=== PATIENT | female | born 1990 | race Caucasian/White ===

== ENCOUNTER 2021-07-16 14:44 | Inpatient (IN) | payer OTHER ==
[2021-07-16] MEDS ORDERED: MENTHOL/PHENOL 1 EACH UD MM PRN (15:12)
[2021-07-16] MEDS ORDERED: cloNIDine HCL 0.1 MG TABLET PO PRN (15:12)
[2021-07-16] MEDS ORDERED: BISMUTH SUBSALICYLATE 524 MG/30 ML PO PRN (15:12)
[2021-07-16] MEDS ORDERED: MAG HYDROX/AL HYDROX/SIMETH 30 ML UNIT-DOSE CUP PO PRN (15:12)
[2021-07-16] MEDS ORDERED: ACETAMINOPHEN 325 MG TABLET (FP) PO PRN ×2 (15:12)
[2021-07-16] MEDS ORDERED: MAGNESIUM CITRATE 300 ML BOTTLE PO PRN (15:12)
[2021-07-16] MEDS ORDERED: NICOTINE 10 MG CARTRIDGE (INHALER) IH PRN (15:12)
[2021-07-16] MEDS ORDERED: MAGNESIUM HYDROX 2400MG/30ML ORAL SUSPENSION 30 ML CUP PO PRN (15:12)
[2021-07-16] MEDS ORDERED: methaDONE HCL 10 MG TABLET (FOR DETOX USE ONLY) PO ONE (15:12)
[2021-07-16] MEDS ORDERED: ONDANSETRON *ODT* 4 MG TABLET SL PRN (15:12)
[2021-07-16] MEDS ORDERED: IBUPROFEN 400 MG TABLET (FP) PO PRN (15:12)
[2021-07-16 15:56] VITALS: BMI 25.3
[2021-07-16] MEDS: hydrOXYzine PAMOATE 25 MG CAPSULE (FP) PO SCH ×2 (17:43→22:11)
[2021-07-16] MEDS: NICOTINE 7 MG/24 HOURS TOPICAL PATCH TD SCH (17:48)
[2021-07-16] MEDS: PRENATAL VITAMINS W/ FOLIC ACID TABLET (FP) PO SCH (17:48)
[2021-07-16] MEDS: THIAMINE HCL 100 MG TABLET (FP) PO SCH (22:11)
[2021-07-16] MEDS: MELATONIN 5 MG TABLETS PO SCH (22:11)
[2021-07-17] MEDS: hydrOXYzine PAMOATE 25 MG CAPSULE (FP) PO SCH ×5 (06:25→23:07)
[2021-07-17] MEDS ORDERED: diazePAM 5 MG TABLET PO PRN (09:06)
[2021-07-17] MEDS ORDERED: methaDONE HCL 10 MG TABLET (FOR DETOX USE ONLY) ONE (09:48)
[2021-07-17 10:28] LABS: HEMATOCRIT 42.5 % (32.4-45.2); HEMOGLOBIN 14.4 GM/dL (10.7-15.3); MCH 28.8 pg (25.7-33.7); MCHC 33.8 g/dl (32.0-36.0); MEAN CELL VOLUME 85.5 fl (80-96); MEAN PLT VOLUME 8.2 fl (7.5-11.1); PLATELET COUNT 346 10^3/uL (134-434); RBC 4.98 M/mm3 (3.60-5.2); RDW 15.4 % (11.6-15.6); WHITE BLOOD COUNT 8.2 K/mm3 (4.0-10.0)
[2021-07-17 10:40] LABS: BLOOD UREA NITROGEN 10.4 mg/dL (7-18)
[2021-07-17 10:42] LABS: CALCIUM 8.7 mg/dL (8.5-10.1)
[2021-07-17 10:43] LABS: CREATININE 0.7 mg/dL (0.55-1.3)
[2021-07-17 10:45] LABS: BILIRUBIN,TOTAL 0.3 mg/dL (0.2-1)
[2021-07-17] MEDS: PRENATAL VITAMINS W/ FOLIC ACID TABLET (FP) PO SCH (10:55)
[2021-07-17] MEDS: METHOCARBAMOL 500 MG TABLET PO PRN (10:56)
[2021-07-17] MEDS: NICOTINE 7 MG/24 HOURS TOPICAL PATCH TD SCH (10:56)
[2021-07-17] MEDS: diazePAM 5 MG TABLET PO SCH ×3 (10:57→23:07)
[2021-07-17] MEDS: THIAMINE HCL 100 MG TABLET (FP) PO SCH (23:07)
[2021-07-17] MEDS: MELATONIN 5 MG TABLETS PO SCH (23:09)
[2021-07-18] MEDS: hydrOXYzine PAMOATE 25 MG CAPSULE (FP) PO SCH ×3 (06:57→15:12)
[2021-07-18] MEDS: diazePAM 5 MG TABLET PO SCH ×4 (06:57→22:24)
[2021-07-18] MEDS: PRENATAL VITAMINS W/ FOLIC ACID TABLET (FP) PO SCH (10:00)
[2021-07-18] MEDS ORDERED: methaDONE HCL 10 MG TABLET (FOR DETOX USE ONLY) PO ONE (10:00)
[2021-07-18] MEDS: NICOTINE 7 MG/24 HOURS TOPICAL PATCH TD SCH (10:00)
[2021-07-18] MEDS: METHOCARBAMOL 500 MG TABLET PO PRN (10:00)
[2021-07-18] MEDS ORDERED: hydrOXYzine PAMOATE 25 MG CAPSULE (FP) PO PRN (15:13)
[2021-07-18] MEDS: THIAMINE HCL 100 MG TABLET (FP) PO SCH (22:24)
[2021-07-18] MEDS: MELATONIN 5 MG TABLETS PO SCH (22:24)
[2021-07-19] MEDS ORDERED: diazePAM 5 MG TABLET PO PRN (00:01)
[2021-07-19] MEDS ORDERED: diazePAM 5 MG TABLET PO SCH (06:00)
[2021-07-19 09:52] VITALS: BP 119/58; PULSE 77; TEMP 97.4
[2021-07-20] MEDS ORDERED: diazePAM 5 MG TABLET PO PRN (00:01)
[2021-07-20] MEDS ORDERED: diazePAM 5 MG TABLET PO SCH (06:00)
[2021-07-20] MEDS ORDERED: methaDONE HCL 10 MG TABLET (FOR DETOX USE ONLY) PO ONE (10:00)
[2021-07-21] MEDS ORDERED: diazePAM 5 MG TABLET PO ONE (06:00)
== END 2021-07-19 11:43 | disposition home or self-care (01) | DRG 773 ==
LOC: YASAS 14:44 → Y6N 16:22
PROVIDERS: ADMIT Allergy & Immunology; ATTEND Allergy & Immunology
PROC: HZ2ZZZZ Detoxification Services for Substance Abuse Treatment (ICD-10-PCS; principal; 2021-07-16)
DX: F11.23 Opioid dependence with withdrawal (principal); F13.232 Sedative, hypnotic or anxiolytic dependence with withdrawal with perceptual disturbance; F14.20 Cocaine dependence, uncomplicated; F12.20 Cannabis dependence, uncomplicated; F17.210 Nicotine dependence, cigarettes, uncomplicated
CPT/HCPCS: 36415; 80053; 81025; 85027; 86780; C9803; U0003; U0005

== ENCOUNTER 2022-03-20 14:35 | Inpatient (IN) | payer OTHER ==
[2022-03-20 15:21] VITALS: BMI 23.6
[2022-03-20] MEDS ORDERED: NICOTINE 10 MG CARTRIDGE (INHALER) IH PRN (16:10)
[2022-03-20] MEDS ORDERED: MAGNESIUM CITRATE 300 ML BOTTLE PO PRN (16:10)
[2022-03-20] MEDS ORDERED: IBUPROFEN 400 MG TABLET (FP) PO PRN (16:10)
[2022-03-20] MEDS ORDERED: LOPERAMIDE HCL 2 MG CAPSULE PO PRN (16:10)
[2022-03-20] MEDS ORDERED: MAGNESIUM HYDROX 2400MG/30ML ORAL SUSPENSION 30 ML CUP PO PRN (16:10)
[2022-03-20] MEDS: hydrOXYzine PAMOATE 25 MG CAPSULE (FP) PO SCH (18:26)
[2022-03-20] MEDS: ACETAMINOPHEN 325 MG TABLET (FP) PO PRN (18:26)
[2022-03-20] MEDS: CLINDAMYCIN HCL 150 MG CAPSULE (FP) PO SCH (18:28)
[2022-03-20] MEDS ORDERED: MELATONIN 5 MG TABLETS PO SCH (22:00)
[2022-03-21] MEDS: THIAMINE HCL 100 MG TABLET (FP) PO SCH ×2 (00:26→21:14)
[2022-03-21] MEDS: CLINDAMYCIN HCL 150 MG CAPSULE (FP) PO SCH ×4 (00:26→18:29)
[2022-03-21] MEDS: hydrOXYzine PAMOATE 25 MG CAPSULE (FP) PO SCH ×3 (00:27→10:25)
[2022-03-21] MEDS: BACITRACIN 0.9 GM PACKET TP SCH ×3 (00:29→21:13)
[2022-03-21] MEDS: ACETAMINOPHEN 325 MG TABLET (FP) PO PRN ×2 (06:53→11:40)
[2022-03-21] MEDS: PRENATAL VITAMINS W/ FOLIC ACID TABLET (FP) PO SCH (10:25)
[2022-03-21] MEDS ORDERED: hydrOXYzine PAMOATE 50 MG CAPSULE (FP) PO SCH (12:00)
[2022-03-21] MEDS: busPIRone HCL 10 MG TABLET (FP) PO SCH ×2 (13:33→21:13)
[2022-03-21] MEDS: guaiFENesin 200 MG/10 ML 10 ML UNIT-DOSE CUPS PO PRN (13:57)
[2022-03-21 15:33] LABS: HEMATOCRIT 42.1 % (32.4-45.2); HEMOGLOBIN 13.2 GM/dL (10.7-15.3); MCH 23.3 pg (25.7-33.7); MCHC 31.4 g/dl (32.0-36.0); MEAN CELL VOLUME 74.2 fl (80-96); MEAN PLT VOLUME 8.7 fl (7.5-11.1); PLATELET COUNT 341 10^3/uL (134-434); RBC 5.67 M/mm3 (3.60-5.2); RDW 22.8 % (11.6-15.6); WHITE BLOOD COUNT 6.2 K/mm3 (4.0-10.0)
[2022-03-21 15:34] LABS: CALCIUM 9.2 mg/dL (8.5-10.1)
[2022-03-21 15:35] LABS: ALBUMIN 3.9 g/dl (3.4-5.0); BLOOD UREA NITROGEN 12.7 mg/dL (7-18)
[2022-03-21 15:36] LABS: CREATININE 0.8 mg/dL (0.55-1.3)
[2022-03-21 15:38] LABS: BILIRUBIN,TOTAL 0.1 mg/dL (0.2-1); TOT PROT 9.1 g/dl (6.4-8.2)
[2022-03-21 15:57] LABS: SYPHILIS W/ RPR CONF NON-REACTIVE (NONREACTIVE)
[2022-03-21] MEDS: hydrOXYzine PAMOATE 50 MG CAPSULE (FP) PO SCH ×2 (18:29→21:14)
[2022-03-21] MEDS: QUEtiapine FUMARATE 50 MG TABLET PO PRN (21:17)
[2022-03-22] MEDS: CLINDAMYCIN HCL 150 MG CAPSULE (FP) PO SCH ×4 (00:19→17:21)
[2022-03-22] MEDS: busPIRone HCL 10 MG TABLET (FP) PO SCH ×3 (06:27→22:01)
[2022-03-22] MEDS: hydrOXYzine PAMOATE 50 MG CAPSULE (FP) PO SCH (06:27)
[2022-03-22] MEDS ORDERED: methaDONE HCL 10 MG TABLET (FOR DETOX USE ONLY) PO ONE (09:37)
[2022-03-22] MEDS ORDERED: methaDONE HCL 10 MG TABLET PO ONE (10:45)
[2022-03-22] MEDS: hydrOXYzine PAMOATE 50 MG CAPSULE (FP) PO PRN ×2 (10:51→17:21)
[2022-03-22] MEDS: PRENATAL VITAMINS W/ FOLIC ACID TABLET (FP) PO SCH (10:51)
[2022-03-22] MEDS: BACITRACIN 0.9 GM PACKET TP SCH ×2 (10:53→22:00)
[2022-03-22] MEDS: P-EPHED 60MG/TRIPROLIDI 2.5MG TABLET PO PRN (11:18)
[2022-03-22] MEDS: ACETAMINOPHEN 325 MG TABLET (FP) PO PRN (12:35)
[2022-03-22] MEDS: guaiFENesin 200 MG/10 ML 10 ML UNIT-DOSE CUPS PO PRN (12:35)
[2022-03-22] MEDS: QUEtiapine FUMARATE 50 MG TABLET PO PRN (22:00)
[2022-03-22] MEDS: THIAMINE HCL 100 MG TABLET (FP) PO SCH (22:00)
[2022-03-23] MEDS: CLINDAMYCIN HCL 150 MG CAPSULE (FP) PO SCH ×4 (01:18→17:46)
[2022-03-23] MEDS: busPIRone HCL 10 MG TABLET (FP) PO SCH ×3 (06:52→22:15)
[2022-03-23] MEDS: hydrOXYzine PAMOATE 50 MG CAPSULE (FP) PO PRN ×2 (06:53→17:47)
[2022-03-23] MEDS: BACITRACIN 0.9 GM PACKET TP SCH ×2 (10:55→22:15)
[2022-03-23] MEDS: PRENATAL VITAMINS W/ FOLIC ACID TABLET (FP) PO SCH (10:56)
[2022-03-23] MEDS ORDERED: methaDONE HCL 10 MG TABLET PO ONE ×2 (11:19)
[2022-03-23] MEDS: P-EPHED 60MG/TRIPROLIDI 2.5MG TABLET PO PRN (14:12)
[2022-03-23] MEDS: ACETAMINOPHEN 325 MG TABLET (FP) PO PRN (14:13)
[2022-03-23] MEDS: THIAMINE HCL 100 MG TABLET (FP) PO SCH (22:16)
[2022-03-23] MEDS: QUEtiapine FUMARATE 50 MG TABLET PO PRN (22:16)
[2022-03-24] MEDS: CLINDAMYCIN HCL 150 MG CAPSULE (FP) PO SCH ×5 (01:23→23:57)
[2022-03-24] MEDS: hydrOXYzine PAMOATE 50 MG CAPSULE (FP) PO PRN (06:12)
[2022-03-24] MEDS: busPIRone HCL 10 MG TABLET (FP) PO SCH ×3 (06:12→21:10)
[2022-03-24] MEDS ORDERED: methaDONE HCL 10 MG TABLET PO ONE (09:30)
[2022-03-24] MEDS: PRENATAL VITAMINS W/ FOLIC ACID TABLET (FP) PO SCH (10:38)
[2022-03-24] MEDS: BACITRACIN 0.9 GM PACKET TP SCH ×2 (10:42→21:10)
[2022-03-24] MEDS: COLLOIDAL OATMEAL 1 BAR EACH TP PRN (12:01)
[2022-03-24] MEDS: MINERAL OIL/PETROLAT/WATER TOPICAL CREAM 113 GM JAR TP SCH (14:05)
[2022-03-24] MEDS: QUEtiapine FUMARATE 50 MG TABLET PO PRN (21:10)
[2022-03-24] MEDS: THIAMINE HCL 100 MG TABLET (FP) PO SCH (21:10)
[2022-03-25] MEDS: busPIRone HCL 10 MG TABLET (FP) PO SCH ×3 (07:25→21:12)
[2022-03-25] MEDS: CLINDAMYCIN HCL 150 MG CAPSULE (FP) PO SCH ×3 (07:25→18:16)
[2022-03-25] MEDS ORDERED: methaDONE HCL 10 MG TABLET PO ONE (10:00)
[2022-03-25] MEDS ORDERED: methaDONE HCL 10 MG TABLET ONE (10:07)
[2022-03-25] MEDS: BACITRACIN 0.9 GM PACKET TP SCH ×2 (10:36→21:12)
[2022-03-25] MEDS: PRENATAL VITAMINS W/ FOLIC ACID TABLET (FP) PO SCH (10:36)
[2022-03-25] MEDS: MINERAL OIL/PETROLAT/WATER TOPICAL CREAM 113 GM JAR TP SCH (10:37)
[2022-03-25] MEDS: hydrOXYzine PAMOATE 50 MG CAPSULE (FP) PO PRN ×2 (10:39→18:17)
[2022-03-25] MEDS: P-EPHED 60MG/TRIPROLIDI 2.5MG TABLET PO PRN (12:10)
[2022-03-25] MEDS: METHOCARBAMOL 500 MG TABLET PO PRN ×2 (14:09→21:12)
[2022-03-25] MEDS: ACETAMINOPHEN 325 MG TABLET (FP) PO PRN (14:09)
[2022-03-25] MEDS: guaiFENesin 200 MG/10 ML 10 ML UNIT-DOSE CUPS PO PRN (14:11)
[2022-03-25] MEDS: LORATADINE 10 MG TABLET PO SCH (14:12)
[2022-03-25] MEDS: THIAMINE HCL 100 MG TABLET (FP) PO SCH (21:12)
[2022-03-25] MEDS: FLUTICASONE PROP 0.05% 16 GM NASAL SPRAY NS SCH (21:13)
[2022-03-26] MEDS: CLINDAMYCIN HCL 150 MG CAPSULE (FP) PO SCH ×4 (02:12→21:17)
[2022-03-26] MEDS: busPIRone HCL 10 MG TABLET (FP) PO SCH ×3 (06:14→21:13)
[2022-03-26] MEDS: hydrOXYzine PAMOATE 50 MG CAPSULE (FP) PO PRN ×4 (06:16→21:15)
[2022-03-26] MEDS ORDERED: methaDONE HCL 40 MG DISPERSABLE TABLET PO ONE (10:00)
[2022-03-26] MEDS: LORATADINE 10 MG TABLET PO SCH (10:35)
[2022-03-26] MEDS: PRENATAL VITAMINS W/ FOLIC ACID TABLET (FP) PO SCH (10:35)
[2022-03-26] MEDS: BACITRACIN 0.9 GM PACKET TP SCH ×2 (10:35→21:17)
[2022-03-26] MEDS: FLUTICASONE PROP 0.05% 16 GM NASAL SPRAY NS SCH ×2 (10:36→21:16)
[2022-03-26] MEDS: MINERAL OIL/PETROLAT/WATER TOPICAL CREAM 113 GM JAR TP SCH (10:36)
[2022-03-26] MEDS: guaiFENesin 200 MG/10 ML 10 ML UNIT-DOSE CUPS PO PRN (14:05)
[2022-03-26] MEDS: THIAMINE HCL 100 MG TABLET (FP) PO SCH (21:13)
[2022-03-26] MEDS: METHOCARBAMOL 500 MG TABLET PO PRN (21:13)
[2022-03-26] MEDS: QUEtiapine FUMARATE 100 MG TABLET (FP) PO PRN (21:15)
[2022-03-27] MEDS: busPIRone HCL 10 MG TABLET (FP) PO SCH ×3 (06:59→21:28)
[2022-03-27] MEDS: methaDONE HCL 40 MG DISPERSABLE TABLET PO SCH (06:59)
[2022-03-27] MEDS: CLINDAMYCIN HCL 150 MG CAPSULE (FP) PO SCH ×6 (07:00→23:21)
[2022-03-27] MEDS: PRENATAL VITAMINS W/ FOLIC ACID TABLET (FP) PO SCH (10:44)
[2022-03-27] MEDS: LORATADINE 10 MG TABLET PO SCH (10:44)
[2022-03-27] MEDS: BACITRACIN 0.9 GM PACKET TP SCH ×2 (10:45→21:28)
[2022-03-27] MEDS: FLUTICASONE PROP 0.05% 16 GM NASAL SPRAY NS SCH ×2 (10:45→21:28)
[2022-03-27] MEDS: MINERAL OIL/PETROLAT/WATER TOPICAL CREAM 113 GM JAR TP SCH (10:46)
[2022-03-27] MEDS: hydrOXYzine PAMOATE 50 MG CAPSULE (FP) PO PRN ×2 (10:47→21:28)
[2022-03-27] MEDS: MAG HYDROX/AL HYDROX/SIMETH 30 ML UNIT-DOSE CUP PO PRN (12:10)
[2022-03-27] MEDS: METHOCARBAMOL 500 MG TABLET PO PRN (21:28)
[2022-03-27] MEDS: THIAMINE HCL 100 MG TABLET (FP) PO SCH (21:28)
[2022-03-27] MEDS: QUEtiapine FUMARATE 100 MG TABLET (FP) PO PRN (21:28)
[2022-03-28] MEDS: CLINDAMYCIN HCL 150 MG CAPSULE (FP) PO SCH (06:15)
[2022-03-28] MEDS: busPIRone HCL 10 MG TABLET (FP) PO SCH ×3 (06:15→21:30)
[2022-03-28] MEDS: methaDONE HCL 40 MG DISPERSABLE TABLET PO SCH (06:15)
[2022-03-28 07:18] VITALS: RESP 18
[2022-03-28] MEDS: FLUTICASONE PROP 0.05% 16 GM NASAL SPRAY NS SCH ×2 (10:37→21:32)
[2022-03-28] MEDS: PRENATAL VITAMINS W/ FOLIC ACID TABLET (FP) PO SCH (10:37)
[2022-03-28] MEDS: BACITRACIN 0.9 GM PACKET TP SCH ×2 (10:38→21:30)
[2022-03-28] MEDS: LORATADINE 10 MG TABLET PO SCH (10:38)
[2022-03-28] MEDS: MINERAL OIL/PETROLAT/WATER TOPICAL CREAM 113 GM JAR TP SCH (10:38)
[2022-03-28] MEDS: guaiFENesin 200 MG/10 ML 10 ML UNIT-DOSE CUPS PO PRN (10:40)
[2022-03-28] MEDS: ACETAMINOPHEN 325 MG TABLET (FP) PO PRN ×2 (10:40→20:11)
[2022-03-28] MEDS: MAG HYDROX/AL HYDROX/SIMETH 30 ML UNIT-DOSE CUP PO PRN ×2 (10:40→20:11)
[2022-03-28] MEDS: hydrOXYzine PAMOATE 50 MG CAPSULE (FP) PO PRN (11:20)
[2022-03-28] MEDS: guaiFENesin 600 MG TABLET.ER (FP) PO SCH ×2 (13:15→21:30)
[2022-03-28] MEDS ORDERED: ONDANSETRON *ODT* 4 MG TABLET SL PRN (13:17)
[2022-03-28] MEDS: QUEtiapine FUMARATE 100 MG TABLET (FP) PO PRN (21:30)
[2022-03-28] MEDS: THIAMINE HCL 100 MG TABLET (FP) PO SCH (21:31)
[2022-03-29] MEDS ORDERED: methaDONE HCL 40 MG DISPERSABLE TABLET PO SCH (06:00)
[2022-03-29] MEDS ORDERED: methaDONE HCL 40 MG DISPERSABLE TABLET ONE (06:00)
[2022-03-29] MEDS: busPIRone HCL 10 MG TABLET (FP) PO SCH ×3 (06:01→21:31)
[2022-03-29] MEDS: ACETAMINOPHEN 325 MG TABLET (FP) PO PRN ×3 (06:01→19:53)
[2022-03-29] MEDS: PRENATAL VITAMINS W/ FOLIC ACID TABLET (FP) PO SCH (09:44)
[2022-03-29] MEDS: LORATADINE 10 MG TABLET PO SCH (09:50)
[2022-03-29] MEDS: guaiFENesin 600 MG TABLET.ER (FP) PO SCH ×2 (09:51→21:31)
[2022-03-29] MEDS: MINERAL OIL/PETROLAT/WATER TOPICAL CREAM 113 GM JAR TP SCH (09:53)
[2022-03-29] MEDS: FLUTICASONE PROP 0.05% 16 GM NASAL SPRAY NS SCH ×2 (09:53→21:31)
[2022-03-29] MEDS: BACITRACIN 0.9 GM PACKET TP SCH ×2 (09:53→21:33)
[2022-03-29] MEDS: hydrOXYzine PAMOATE 50 MG CAPSULE (FP) PO PRN (19:53)
[2022-03-29] MEDS: THIAMINE HCL 100 MG TABLET (FP) PO SCH (21:31)
[2022-03-29] MEDS: QUEtiapine FUMARATE 100 MG TABLET (FP) PO PRN (21:32)
[2022-03-30] MEDS ORDERED: methaDONE HCL 40 MG DISPERSABLE TABLET ONE (02:56)
[2022-03-30] MEDS: busPIRone HCL 10 MG TABLET (FP) PO SCH ×3 (06:16→21:34)
[2022-03-30] MEDS: LORATADINE 10 MG TABLET PO SCH (10:48)
[2022-03-30] MEDS: PRENATAL VITAMINS W/ FOLIC ACID TABLET (FP) PO SCH (10:48)
[2022-03-30] MEDS: FLUTICASONE PROP 0.05% 16 GM NASAL SPRAY NS SCH ×2 (10:48→21:35)
[2022-03-30] MEDS: BACITRACIN 0.9 GM PACKET TP SCH ×2 (10:49→21:34)
[2022-03-30] MEDS: guaiFENesin 600 MG TABLET.ER (FP) PO SCH ×2 (10:49→21:34)
[2022-03-30] MEDS: MINERAL OIL/PETROLAT/WATER TOPICAL CREAM 113 GM JAR TP SCH (10:50)
[2022-03-30] MEDS: THIAMINE HCL 100 MG TABLET (FP) PO SCH (21:34)
[2022-03-30] MEDS: QUEtiapine FUMARATE 100 MG TABLET (FP) PO PRN (21:34)
[2022-03-30] MEDS: hydrOXYzine PAMOATE 50 MG CAPSULE (FP) PO PRN (21:34)
[2022-03-31] MEDS ORDERED: methaDONE HCL 40 MG DISPERSABLE TABLET ONE (03:48)
[2022-03-31] MEDS: busPIRone HCL 10 MG TABLET (FP) PO SCH ×3 (06:38→21:52)
[2022-03-31] MEDS: PRENATAL VITAMINS W/ FOLIC ACID TABLET (FP) PO SCH (10:20)
[2022-03-31] MEDS: LORATADINE 10 MG TABLET PO SCH (10:20)
[2022-03-31] MEDS: FLUTICASONE PROP 0.05% 16 GM NASAL SPRAY NS SCH ×2 (10:20→21:52)
[2022-03-31] MEDS: BACITRACIN 0.9 GM PACKET TP SCH ×2 (10:21→21:52)
[2022-03-31] MEDS: guaiFENesin 600 MG TABLET.ER (FP) PO SCH ×2 (10:21→21:52)
[2022-03-31] MEDS: MINERAL OIL/PETROLAT/WATER TOPICAL CREAM 113 GM JAR TP SCH (10:22)
[2022-03-31] MEDS: COLLOIDAL OATMEAL 1 BAR EACH TP PRN (10:23)
[2022-03-31] MEDS: hydrOXYzine PAMOATE 50 MG CAPSULE (FP) PO PRN ×3 (10:23→22:18)
[2022-03-31] MEDS: QUEtiapine FUMARATE 100 MG TABLET (FP) PO PRN (21:52)
[2022-03-31] MEDS: THIAMINE HCL 100 MG TABLET (FP) PO SCH (21:52)
[2022-03-31] MEDS: METHOCARBAMOL 500 MG TABLET PO PRN (21:53)
[2022-04-01] MEDS ORDERED: methaDONE HCL 40 MG DISPERSABLE TABLET ONE (03:50)
[2022-04-01] MEDS: busPIRone HCL 10 MG TABLET (FP) PO SCH ×3 (06:32→21:39)
[2022-04-01] MEDS: hydrOXYzine PAMOATE 50 MG CAPSULE (FP) PO PRN ×3 (06:33→21:39)
[2022-04-01 07:20] VITALS: PULSE 75
[2022-04-01] MEDS: LORATADINE 10 MG TABLET PO SCH (10:26)
[2022-04-01] MEDS: PRENATAL VITAMINS W/ FOLIC ACID TABLET (FP) PO SCH (10:26)
[2022-04-01] MEDS: FLUTICASONE PROP 0.05% 16 GM NASAL SPRAY NS SCH ×2 (10:26→21:38)
[2022-04-01] MEDS: guaiFENesin 600 MG TABLET.ER (FP) PO SCH ×2 (10:27→21:57)
[2022-04-01] MEDS: BACITRACIN 0.9 GM PACKET TP SCH ×2 (10:27→21:57)
[2022-04-01] MEDS: MINERAL OIL/PETROLAT/WATER TOPICAL CREAM 113 GM JAR TP SCH (10:28)
[2022-04-01] MEDS: THIAMINE HCL 100 MG TABLET (FP) PO SCH (21:38)
[2022-04-01] MEDS: QUEtiapine FUMARATE 100 MG TABLET (FP) PO PRN (21:38)
[2022-04-01] MEDS: METHOCARBAMOL 500 MG TABLET PO PRN (21:38)
[2022-04-02] MEDS: busPIRone HCL 10 MG TABLET (FP) PO SCH ×2 (06:47→15:01)
[2022-04-02 07:34] VITALS: BP 123/63; TEMP 97.7
[2022-04-02] MEDS: FLUTICASONE PROP 0.05% 16 GM NASAL SPRAY NS SCH (10:21)
[2022-04-02] MEDS: hydrOXYzine PAMOATE 50 MG CAPSULE (FP) PO PRN (10:21)
[2022-04-02] MEDS: guaiFENesin 600 MG TABLET.ER (FP) PO SCH (10:21)
[2022-04-02] MEDS: LORATADINE 10 MG TABLET PO SCH (10:21)
[2022-04-02] MEDS: PRENATAL VITAMINS W/ FOLIC ACID TABLET (FP) PO SCH (10:21)
[2022-04-02] MEDS: BACITRACIN 0.9 GM PACKET TP SCH (10:22)
[2022-04-02] MEDS: MINERAL OIL/PETROLAT/WATER TOPICAL CREAM 113 GM JAR TP SCH (10:22)
[2022-04-02] MEDS: ACETAMINOPHEN 325 MG TABLET (FP) PO PRN (11:12)
[2022-04-03] MEDS ORDERED: methaDONE 40 MG, methaDONE 10 MG PO SCH (06:00)
[2022-04-03] MEDS ORDERED: methaDONE HCL 40 MG DISPERSABLE TABLET PO SCH (06:00)
== END 2022-04-02 17:30 | disposition home or self-care (01) | DRG 772 ==
LOC: YASAS 14:35 → Y5N 16:34
PROVIDERS: ADMIT Allergy & Immunology; ATTEND Family Medicine
PROC: HZ42ZZZ Group Counseling for Substance Abuse Treatment, Cognitive-Behavioral (ICD-10-PCS; principal; 2022-03-20)
DX: F11.20 Opioid dependence, uncomplicated (principal); F13.20 Sedative, hypnotic or anxiolytic dependence, uncomplicated; F14.20 Cocaine dependence, uncomplicated; F17.210 Nicotine dependence, cigarettes, uncomplicated; F19.282 Other psychoactive substance dependence with psychoactive substance-induced sleep disorder; F19.280 Other psychoactive substance dependence with psychoactive substance-induced anxiety disorder; F41.9 Anxiety disorder, unspecified; F91.8 Other conduct disorders; R05.9 Cough, unspecified; R09.89 Other specified symptoms and signs involving the circulatory and respiratory systems; G47.00 Insomnia, unspecified; Z28.310 Unvaccinated for COVID-19; Z87.59 Personal history of other complications of pregnancy, childbirth and the puerperium; Z56.0 Unemployment, unspecified
CPT/HCPCS: 36415; 80053; 81025; 84703; 85027; 86780; 86803; 87522; 93005; 93010; Q0162